=== PATIENT | male | born 1960 | race Two or more races ===

== ENCOUNTER 2025-03-07 19:26 | Emergency (ER) | payer MEDICARE, OTHER ==
[~2025-03-07] VITALS: Ht 175.3 cm; Wt 68.2 kg
[2025-03-07 19:30] VITALS: BP 107/71; PULSE 92; RESP 18; TEMP 98.3; O2SAT 98
--- NOTE | 2025-03-07 19:56 | ED.PDOC ---
GI ASSESSMENT HPI Comments This is a 64 year-old male who presents to the ED via EMS with a chief complaint of x1 episode of hematemesis with associated abdominal distention minutes ago. 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 Patient additionally reports last bowel movement yesterday with huge, hard, and brown stool noted. Patient states he had serbian food today, but does not suspect it to be the cause of his hematemesis. Patient has no further complaints or modifying factors at this time. Patient otherwise denies chest pain, diarrhea, constipation, SOB, fever, chills, abdominal pain, or dysuria. REVIEW OF SYSTEMS: General: No fever, no chills, no fatigue HEENT: No sore throat, no earache, no congestion, no neck pain. Cardiac: No chest pain. No palpitations. Lungs: No shortness of breath, no cough. GI: Positive abdominal distention. Positive hematemesis. No abdominal pain. No nausea. no diarrhea, no constipation : No flank pain. No dysuria, frequency, or urgency. Musculoskeletal: No joint pain. no joint swelling, no extremity edema. Skin: No rash, no itching. Neuro: No headache, dizziness, or weakness PHYSICAL EXAM: General: Awake, alert and oriented. No acute distress. Skin: Skin in warm, dry and intact. Appropriate color for ethnicity. HEENT: The head is normocephalic and atraumatic. Conjunctivae are clear without exudates or hemorrhage. Sclera is non-icteric. EOM are intact. No signs of nystagmus. Eyelids are normal in appearance without swelling or lesions. Oral mucosa is pink and moist Neck: The neck is supple with painful range of motion. No JVD. Cardiac: Heart rate and rhythm are normal. No murmurs, gallops, or rubs are auscultated. Respiratory: No signs of respiratory distress. Lung sounds are clear in all lobes bilaterally without rales, rhonchi, or wheezes. Abdominal: Bowel is distended, soft and w/ normal bowel sounds. Extremities: Upper and lower extremities are atraumatic in appearance without deformity or edema. Neurological: The patient is awake, alert and oriented to person, place, and time with normal speech. Speech is clear. There is no facial asymmetry. Psychiatric: Appropriate mood and affect. Good judgement and insight. 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, Medications, Allergies Allergies: Coded Allergies: NO KNOWN ALLERGIES (Unverified , 03/07/25) Information Source: Patient, Emergency Med Personnel Mode of Arrival: EMS Timing: Minutes Duration: Since onset Prehospital treatment: Accucheck (110) Vomitus: Bloody Severity: Moderate Associated sign and symptoms: Hematemesis, Other (abdominal distention) Past Medical History PAST MEDICAL HISTORY: Denies Surgical History: Denies all surgeries Family History Family History: Reviewed,noncontributory to illness, No family hx of Cancer, No family hx of DM, No family hx of Heart nieves, No family hx of HTN, No family hx ofKidney nieves, No family hx of Liver nieves, No family hx of Lung nieves, No family hx of Stroke Social History Smoker: Non-Smoker Alcohol: Denies ETOH Use Drugs: Denies Drug Use Was a procedure done? Was a procedure done?: No GI differential Dx Differential Diagnosis: Cholecystitis, Constipation, Gastritis/PUD, Gastroenteritis, Inflammatory BD, UTI, Urolithiasis, Dehydration, Diabetes/ DKA, Food Poisoning, Bacterial, Parasitic, Viral, Kidney Stone X-Ray, Labs, Meds, VS Vital Signs Date Time Temp Pulse Resp B/P (MAP) Pulse Ox O2 Delivery O2 Flow Rate FiO2 03/07/25 19:30 98.3 92 18 107/71 98 98.3 Images Reviewed?: Images reviewed and evaluated by me Time of 1ST Reevaluation: 20:22 Reevaluation 1ST: Unchanged Patient Education/Counseling: Diagnosis, Treatment Family Education/Counseling: No Family Present Medical Screening: No EMC Exist At This Time SEPSIS Sepsis Screen Date sepsis recognized/suspect: Mar 07, 2025 Time Sepsis recognized/suspect: 1929 Recent Procedure: No On Antibiotic Therapy: No Respiratory Rate >20: No Heart Rate >90: Yes Temp<36 C (96.8 F) or >38.3 C: No SBP <90 or MAP <65 mmHG: No New Acute Mental Status Change: No Is the patient on CPAP, BIPAP,: No Physician Orders Electrocardigram (03/07/25 19:56) Vital Signs Date Time Temp Pulse Resp B/P (MAP) Pulse Ox O2 Delivery O2 Flow Rate FiO2 03/07/25 19:30 98.3 92 18 107/71 98 98.3 Departure 1 Departure Time of Disposition: 22:11 Impression: Primary Impression: Hematemesis Additional Impressions: Syncope Head injury Left against medical advice Disposition: 07 LEFT AGAINST MEDICAL ADVICE Condition: Other Comments Despite our efforts, patient has decided to leave against medical advice. The patient has a normal mental status and full decisional capacity. Patient has been informed of the benefits of staying such as further diagnosis and treatment of possible serious etiology of the symptoms, and the risks of leaving such as , chronic pain, permanent disability or other serious adverse events which might be attributed to leaving. The patient displays clear understanding of these benefits and risks and chooses to leave. The patient is been informed also that they may return here at any time if they change their mind or need to further concerns or questions has been referred to their local medical physician for follow up S[facility]ER. Critical Care Note Critical Care Time?: No Stability Stability form required: No Heart Score Heart Score: Heart Score Response (Comments) Value History N/A 0 EKG N/A 0 Age N/A 0 Risk Factors N/A 0 Troponin N/A 0 Total 0 I personally scribed for SHRUTHI GLYNN MD ([email or web address]) on 03/07/25 at 19:56. Electronically submitted by Zainab Weber ([email or web address]). SHRUTHI GLYNN MD Mar 07, 2025 19:56
[2025-03-07] MEDS ORDERED: PANTOPRAZOLE 40 MG/10 ML VIAL INJ IV ONE (20:00)
== END 2025-03-07 20:39 | disposition left against medical advice (07) ==
LOC: ER 19:26 → EDBD 19:26 → ER 20:39
DX: S09.8XXA Other specified injuries of head, initial encounter (principal); K92.0 Hematemesis; R55 Syncope and collapse; X58.XXXA Exposure to other specified factors, initial encounter; Y93.89 Activity, other specified; Y92.89 Other specified places as the place of occurrence of the external cause; Y99.8 Other external cause status